=== PATIENT | female | born 1960 | race Caucasian/White ===

== ENCOUNTER 2020-02-26 06:21 | Emergency (ER) | payer MEDICAID ==
[~2020-02-26] VITALS: Ht 160 cm; Wt 58.1 kg
[2020-02-26] MEDS ORDERED: PROMETHAZINE 25 MG/ML, 1ML ONE (06:55)
[2020-02-26] MEDS ORDERED: ASPIRIN 81 MG TABLET CHEW ONE (06:56)
[2020-02-26] MEDS ORDERED: LORazepam 1MG TABLET ONE (06:56)
[2020-02-26] MEDS ORDERED: PROMETHAZINE 25 MG/ML, 1ML IM ONE (07:00)
[2020-02-26] MEDS ORDERED: ASPIRIN 81 MG TABLET CHEW PO ONE (07:00)
[2020-02-26] MEDS ORDERED: LORazepam 1MG TABLET PO ONE (07:00)
--- NOTE | 2020-02-26 07:00 | NUR ---
PT REFUSED ASPIRIN. STATES "I CAN'T HAVE ASPIRIN, I'M ALREADY BLEEDING INSIDE MY ESOPHAGUS, I DON'T WANT IT". UPDATED.
[2020-02-26 07:29] LABS: MEAN CORPUSCULAR HEMOGLOBIN 21.7 pg (27.0-34.8); MEAN CORPUSCULAR HGB CONC 30.1 g/dL (32.4-35.8); MEAN PLATELET VOLUME 7.3 fL (7.4-10.4); PLATELET COUNT 389 x10^3/uL (130-400); RED CELL DISTRIBUTION WIDTH 19.2 % (9.6-15.2)
[2020-02-26 07:32] VITALS: BP 137/92
[2020-02-26 07:37] LABS: ALBUMIN 3.3 g/dL (3.4-5.0); ANION GAP 6 mmol/L (5-15); CALCIUM 8.1 mg/dL (8.5-10.1); CHLORIDE 116 mmol/L (98-107)
[2020-02-26 07:41] LABS: TROPONIN I 0.016 ng/mL (0.000-0.045)
[2020-02-26 07:45] LABS: MD YES
[2020-02-26 07:46] LABS: <PLATELET ESTIMATE> ADEQUATE; <PLT MORPHOLOGY> NORMAL PLT MORPH; ANISOCYTOSIS 1+; EOS#(MANUAL) 0.08 x10^3/uL (0.0-0.4); EOS% (MANUAL) 1 % (1-7); HYPOCHROMIA 1+; LYMPH#(MANUAL) 1.73 x10^3/uL (1-3.4); LYMPHS% (MANUAL) 23 % (22-44); MICROCYTOSIS 1+; MONOS% (MANUAL) 4 % (2-9); SEGS% (MANUAL) 72 % (42-75)
[2020-02-26 07:47] LABS: OVALOCYTES 1+; POLYCHROMASIA 1+
--- NOTE | 2020-02-26 07:53 | NUR ---
PT TALKING TO SELF IN ROOM, YELLING AND CUSSING. WENT INTO ROOM TO SPEAK W/ PT REGARDING EMOTIONAL DISTRESS. PT STATES "I WANT TO GO! YOU GUYS ARE TREATING ME LIKE IM A FUCKING IDIOT, VITAMIN C! I DON'T NEED A PRESCRIPTION FOR VITAMIN C I CAN GET IT OVER THE COUNTER! I CAN'T BREATHE! YOU GUYS ARE NOT DOING ANYTHING TO HELP ME!". PT CRYING AND KICKING FEET ON BED, HITTING FACE LIGHTLY WITH HANDS. PT EDUCATED ON ED PROCESS. UPDATED AND IN ROOM FOR PT RECHECK. PT O2 100 RA. RESP EVEN AND UNLABORED, NADSharona.
== END 2020-02-26 08:25 | disposition home or self-care (01) ==
LOC: ED 08:12
DX: J20.9 Acute bronchitis, unspecified (principal); D50.9 Iron deficiency anemia, unspecified; F41.1 Generalized anxiety disorder; R07.9 Chest pain, unspecified; R00.0 Tachycardia, unspecified; I10 Essential (primary) hypertension; F17.200 Nicotine dependence, unspecified, uncomplicated
CPT/HCPCS: 36415; 71045; 80048; 82040; 84484; 85025; 93005; 96372; 99285; J2550